=== PATIENT | female | born 1945 | race African-American/Black ===

== ENCOUNTER 2021-05-02 12:12 | Emergency (ER) | payer OTHER ==
[~2021-05-02] VITALS: Ht 167.6 cm; Wt 100.0 kg
[2021-05-02] MEDS ORDERED: SODIUM CHLORIDE 0.9% 500 ML IV ONE (13:00)
[2021-05-02] MEDS ORDERED: ASPIRIN 325MG EC TABLET PO ONE (13:00)
[2021-05-02] MEDS ORDERED: LORAZEPAM 2MG/ML CPJ IV ONE (13:00)
[2021-05-02] MEDS ORDERED: MORPHINE SULFATE 4 MG/ML CPJ (NOT FOR IM USE) IV ONE (13:00)
[2021-05-02 13:14] LABS: BASOPHILS % 0.5 % (0.0-2.0); HEMATOCRIT. 35.5 % (36.0-48.0); LYMPHOCYTES % 21.5 % (20.0-50.0); MEAN CORPUSCULAR HEMOGLOBIN 28.5 pg (28.0-32.0); MEAN CORPUSCULAR VOLUME 84.5 fL (81.0-99.0); MONOCYTES % 9.2 % (2.0-8.0); NEUTROPHILS % 67.8 % (40.0-76.0); RED CELL DISTRIBUTION WIDTH 14.9 % (11.6-14.6)
[2021-05-02 13:19] LABS: CHLORIDE 116 mEq/L (98-107)
[2021-05-02 13:45] LABS: PLATELET 207 x1000/uL (130-400)
[2021-05-02] MEDS ORDERED: HYDROMORPHONE HCL/PF 2MG/ML CPJ IV ONE ×2 (15:15→19:00)
[2021-05-02] MEDS ORDERED: IOHEXOL-350 100 ML BOTTLE ONE (16:07)
[2021-05-02] MEDS ORDERED: HYDROMORPHONE HCL/PF 2MG/ML CPJ IV NR (19:45)
[2021-05-02 23:28] VITALS: BP 116/55
== END 2021-05-02 23:33 | disposition short-term general hospital (02) ==
LOC: ER 12:50
DX: R07.89 Other chest pain (principal); J96.91 Respiratory failure, unspecified with hypoxia; I10 Essential (primary) hypertension; I25.2 Old myocardial infarction; Z90.49 Acquired absence of other specified parts of digestive tract; Z87.891 Personal history of nicotine dependence
CPT/HCPCS: 36415; 71045; 71275; 80053; 83880; 84484; 85025; 93005; 96361; 96374; 96375; 96376; 99291; J1170; J2060; J2270; J7040; Q9967; 99285